=== PATIENT | female | born 1940 | race Caucasian/White ===

== ENCOUNTER 2018-06-29 22:48 | Inpatient (IN) ==
[2018-06-29] MEDS ORDERED: MORPHINE 4 MG/1 ML VIAL IV STA (23:23)
[2018-06-30 00:33] LABS: Basophils % 0.3 % (0.0-0.8); Eosinophils # 0.1 10*3/uL (0.0-0.87); Eosinophils % 0.9 % (0.00-10.9); Hematocrit 44.8 VOL% (35.7-47.0); Immature Granulocytes % 0.5 %; Immature Granulocytes Absolute 0.06 #; Lymphocytes # 1.1 10*3/uL (1.4-4.0); Lymphocytes % 7.9 % (21.3-54.2); Mean Corpuscular HGB Conc 33.5 GM/DL (32-36); Mean Corpuscular Hemoglobin 31 PG (27-34); Mean Corpuscular Volume 92.9 FL (87-102); Mean Platelet Volume 12.6 FL (9.6-12.0); Monocytes # 1.1 10*3/uL (0.11-0.8); Monocytes % 8.1 % (1.7-12.7); Neutrophils % 82.3 % (38.7-73.9); Platelet Count 134 T/CUMM (130-400); Red Blood Count 4.82 MC/CUMM (3.8-5.5); Red Cell Distribution Width 12.9 % (9.3-17.3); White Blood Count 13.3 T/CUMM (4-12)
[2018-06-30 00:39] LABS: Albumin 3.5 G/DL (3.4-5.0); Bilirubin,Total 0.7 MG/DL (0.2-1.0); Calcium 8.7 MG/DL (8.5-10.1); Total Protein 7.3 G/DL (6.4-8.3)
[2018-06-30 00:41] LABS: Lactic Acid 1.3 MMOL/L (0.4-2.0)
[2018-06-30 01:00] LABS: Apearance,Urine CLOUDY (Clear); Bilirubin,Urine Negative (Negative); Blood, Urine Large mg/dL (Negative); Glucose,Urine (UA) Negative (Negative); Ketones,Urine Negative (Negative); Nitrite,Urine Negative (Negative); Protein,Urine 100 MG/DL; RBC,Urine 404 /HPF (0-4); Urine Color Yellow (Yellow); Urine Specific Gravity 1.008 (1.001-1.035); Urine Urobilinogen < 2.0 EU/DL (0.2-1.0); WBC,Urine 870 /HPF (0-6)
[2018-06-30] MEDS ORDERED: SODIUM CHLOR 0.45% KCL 20 MEQ 20 MEQ/1,000 ML BAG IV SCH (01:00)
[2018-06-30] MEDS ORDERED: MORPHINE 4 MG/1 ML VIAL IV STA (01:06)
[2018-06-30] MEDS ORDERED: cefTRIAXone 1,000 MG in SODIUM CHLORIDE 0.9% 100 ML IV STA (01:13)
[2018-06-30] MEDS ORDERED: ONDANSETRON 4 MG/2 ML VIAL IV PRN (02:36)
[2018-06-30] MEDS ORDERED: DEXTROSE 50% 25 GM/50 ML VIAL IV PRN (02:36)
[2018-06-30] MEDS ORDERED: ACETAMINOPHEN 325 MG TABLET PO PRN (02:36)
[2018-06-30] MEDS ORDERED: GLUCAGON 1 MG VIAL IM PRN (02:36)
[2018-06-30] MEDS ORDERED: HYDROmorphone 2 MG/1 ML VIAL IV PRN (02:55)
[2018-06-30] MEDS ORDERED: MEROPENEM 1,000 MG in SODIUM CHLORIDE 0.9% 100 ML IV SCH (03:00)
[2018-06-30] MEDS ORDERED: SODIUM CHLORIDE 0.9% 1,000 ML IV SCH (03:00)
[2018-06-30 06:12] LABS: Basophils % 0.3 % (0.0-0.8); Eosinophils % 0.3 % (0.00-10.9); Hematocrit 40.1 VOL% (35.7-47.0); Hemoglobin 13.6 GM/DL (12.0-16.0); Immature Granulocytes % 0.5 %; Immature Granulocytes Absolute 0.06 #; Lymphocytes # 1.1 10*3/uL (1.4-4.0); Lymphocytes % 8.9 % (21.3-54.2); Mean Corpuscular HGB Conc 33.9 GM/DL (32-36); Mean Corpuscular Hemoglobin 31 PG (27-34); Mean Corpuscular Volume 91.6 FL (87-102); Mean Platelet Volume 12.5 FL (9.6-12.0); Monocytes # 1.2 10*3/uL (0.11-0.8); Monocytes % 10.5 % (1.7-12.7); Neutrophils # 9.4 10*3/uL (1.4-7.4); Neutrophils % 79.5 % (38.7-73.9); Platelet Count 122 T/CUMM (130-400); Red Blood Count 4.38 MC/CUMM (3.8-5.5); White Blood Count 11.9 T/CUMM (4-12)
[2018-06-30] MEDS: INSULIN REGULAR 100 UNIT/ML SUBCUT SCH ×4 (08:57→21:28)
[2018-06-30] MEDS ORDERED: MAGNESIUM SULF RIDER 2 GM in PREMIX 1 EACH IV PRN (10:26)
[2018-06-30] MEDS ORDERED: MAGNESIUM SULF RIDER 4 GM in PREMIX 1 EACH IV PRN (10:26)
[2018-06-30] MEDS: cefTRIAXone 1,000 MG in SYRINGE 1 EACH IV SCH (15:01)
[2018-06-30] MEDS: SODIUM CHLOR 0.45% KCL 20 MEQ 20 MEQ/1,000 ML BAG IV SCH (15:17)
[2018-06-30] MEDS ORDERED: FUROSEMIDE 40 MG TABLET PO SCH (16:00)
[2018-06-30] MEDS: DULoxetine 30 MG CAPSULE PO SCH (20:21)
[2018-06-30] MEDS: PREGABALIN 100 MG CAPSULE PO SCH (20:21)
[2018-06-30] MEDS: ATORVASTATIN 40 MG TABLET PO SCH (20:21)
[2018-06-30] MEDS: CARVEDILOL 12.5 MG TABLET PO SCH (20:22)
[2018-07-01 05:03] LABS: Basophils % 0.5 % (0.0-0.8); Eosinophils # 0.2 10*3/uL (0.0-0.87); Eosinophils % 2.2 % (0.00-10.9); Hematocrit 37.9 VOL% (35.7-47.0); Hemoglobin 12.4 GM/DL (12.0-16.0); Immature Granulocytes % 0.5 %; Immature Granulocytes Absolute 0.04 #; Lymphocytes # 1.7 10*3/uL (1.4-4.0); Lymphocytes % 22.2 % (21.3-54.2); Mean Corpuscular HGB Conc 32.7 GM/DL (32-36); Mean Corpuscular Hemoglobin 31 PG (27-34); Mean Corpuscular Volume 93.3 FL (87-102); Monocytes # 0.8 10*3/uL (0.11-0.8); Neutrophils # 4.9 10*3/uL (1.4-7.4); Neutrophils % 64.6 % (38.7-73.9); Platelet Count 115 T/CUMM (130-400); Red Blood Count 4.06 MC/CUMM (3.8-5.5); White Blood Count 7.6 T/CUMM (4-12)
[2018-07-01 05:27] LABS: Calcium 8.3 MG/DL (8.5-10.1); Potassium 3.3 MMOL/L (3.5-5.1)
[2018-07-01] MEDS: SODIUM CHLOR 0.45% KCL 20 MEQ 20 MEQ/1,000 ML BAG IV SCH (05:51)
[2018-07-01] MEDS: LEVOTHYROXINE 88 MCG TABLET PO SCH (06:50)
[2018-07-01] MEDS: CARVEDILOL 12.5 MG TABLET PO SCH ×2 (09:31→21:56)
[2018-07-01] MEDS: PREGABALIN 100 MG CAPSULE PO SCH ×2 (09:31→21:56)
[2018-07-01] MEDS: amLODIPine 5 MG TABLET PO SCH (09:31)
[2018-07-01] MEDS: LOSARTAN 50 MG TABLET PO SCH (09:31)
[2018-07-01] MEDS: PANTOPRAZOLE 40 MG TABLET PO SCH (09:31)
[2018-07-01] MEDS: INSULIN REGULAR 100 UNIT/ML SUBCUT SCH ×4 (10:16→21:56)
[2018-07-01] MEDS: cefTRIAXone 1,000 MG in SYRINGE 1 EACH IV SCH (15:59)
[2018-07-01] MEDS: POTASSIUM CHLORIDE RIDER 10 MEQ in PREMIX 1 EACH IV PRN ×3 (15:59→23:45)
[2018-07-01] MEDS: POTASSIUM CHLORIDE INJ 40 MEQ in SODIUM CHLORIDE 0.45% 1,000 ML IV SCH (16:01)
[2018-07-01] MEDS: DULoxetine 30 MG CAPSULE PO SCH (21:56)
[2018-07-01] MEDS: ATORVASTATIN 40 MG TABLET PO SCH (21:56)
[2018-07-02] MEDS: POTASSIUM CHLORIDE RIDER 10 MEQ in PREMIX 1 EACH IV PRN (02:01)
[2018-07-02 05:28] LABS: Basophils # 0.1 10*3/uL (0.0-0.2); Eosinophils # 0.3 10*3/uL (0.0-0.87); Eosinophils % 5.4 % (0.00-10.9); Hematocrit 38.1 VOL% (35.7-47.0); Hemoglobin 12.3 GM/DL (12.0-16.0); Immature Granulocytes % 0.6 %; Immature Granulocytes Absolute 0.03 #; Lymphocytes # 1.6 10*3/uL (1.4-4.0); Lymphocytes % 30.5 % (21.3-54.2); Mean Corpuscular HGB Conc 32.3 GM/DL (32-36); Mean Corpuscular Hemoglobin 30 PG (27-34); Mean Corpuscular Volume 94.3 FL (87-102); Mean Platelet Volume 12.7 FL (9.6-12.0); Monocytes # 0.6 10*3/uL (0.11-0.8); Monocytes % 11.1 % (1.7-12.7); Neutrophils # 2.6 10*3/uL (1.4-7.4); Neutrophils % 51.4 % (38.7-73.9); Platelet Count 127 T/CUMM (130-400); Red Blood Count 4.04 MC/CUMM (3.8-5.5); Red Cell Distribution Width 12.7 % (9.3-17.3); White Blood Count 5.1 T/CUMM (4-12)
[2018-07-02 05:56] LABS: Calcium 8.7 MG/DL (8.5-10.1); Potassium 4.4 MMOL/L (3.5-5.1)
[2018-07-02] MEDS: LEVOTHYROXINE 88 MCG TABLET PO SCH (06:17)
[2018-07-02] MEDS: LOSARTAN 50 MG TABLET PO SCH (08:24)
[2018-07-02] MEDS: PREGABALIN 100 MG CAPSULE PO SCH (08:24)
[2018-07-02] MEDS: PANTOPRAZOLE 40 MG TABLET PO SCH (08:24)
[2018-07-02] MEDS: amLODIPine 5 MG TABLET PO SCH (08:25)
[2018-07-02] MEDS: CARVEDILOL 12.5 MG TABLET PO SCH (08:26)
[2018-07-02] MEDS: INSULIN REGULAR 100 UNIT/ML SUBCUT SCH (08:26)
[2018-07-02] MEDS: POTASSIUM CHLORIDE INJ 40 MEQ in SODIUM CHLORIDE 0.45% 1,000 ML IV SCH (08:26)
[2018-07-02] MEDS ORDERED: ASPIRIN EC 81 MG TABLET PO SCH (09:00)
[2018-07-02 11:58] VITALS: BP 133/65
== END 2018-07-02 12:00 | disposition home or self-care (01) | DRG 690 ==
LOC: N.ED 22:48 → N.EDINP 06-30 02:28 → N.5E 06-30 02:42
PROVIDERS: ADMIT Internal Medicine; ATTEND Internal Medicine

== ENCOUNTER 2020-05-31 20:12 | Inpatient (IN) ==
[2020-05-31] MEDS ORDERED: DEXAMETHASONE 4 MG/1 ML VIAL IV STA (20:50)
[2020-05-31] MEDS ORDERED: SODIUM CHLORIDE 0.9% 1,000 ML IV STA (20:50)
[2020-05-31 20:51] LABS: Basophils % 0.6 % (0.0-0.8); Eosinophils # 0.1 10*3/uL (0.0-0.87); Eosinophils % 1.3 % (0.00-10.9); Hematocrit 39.1 VOL% (35.7-47.0); Hemoglobin 13.1 GM/DL (12.0-16.0); Immature Granulocytes % 0.6 %; Immature Granulocytes Absolute 0.03 #; Lymphocytes # 0.9 10*3/uL (1.4-4.0); Lymphocytes % 18.2 % (21.3-54.2); Mean Corpuscular HGB Conc 33.5 GM/DL (32-36); Mean Corpuscular Volume 89.7 FL (87-102); Monocytes % 12.9 % (1.7-12.7); Neutrophils % 66.4 % (38.7-73.9); Platelet Count 123 T/CUMM (130-400); Red Blood Count 4.36 MC/CUMM (3.8-5.5); Red Cell Distribution Width 14.9 % (9.3-17.3); White Blood Count 4.7 T/CUMM (4-12)
[2020-05-31 21:06] LABS: Alanine Aminotransferase 22 U/L (13-56); Albumin 3.1 G/DL (3.4-5.0); Alkaline Phosphatase 102 U/L (45-117); Aspartate Amino Transferase 28 U/L (0-37); Blood Urea Nitrogen 27 MG/DL (7-18); Calcium 8.2 MG/DL (8.5-10.1); Estimated Glom Filtration Rate 28 ML/MIN; Glucose 188 MG/DL (74-106); INR 1.1; Osmolality,Calculated 290.3 MOS/KG (273-304); PT Patient Result 11.9 SECS (9.8-11.9); Partial Thromboplastin Time 34.5 SECS (23.9-33.8); Total Protein 6.9 G/DL (6.4-8.3); Troponin I < 0.015 NG/ML (0.00-0.045)
[2020-05-31 21:08] LABS: Ferritin 147.6 ng/ml (8-252)
[2020-05-31 21:20] LABS: Bacteria,Urine Many /HPF (Few); Bilirubin,Urine Negative (Negative); Blood, Urine Moderate mg/dL (Negative); Glucose,Urine (UA) Negative (Negative); Ketones,Urine Negative (Negative); Nitrite,Urine Positive (Negative); Protein,Urine 30 MG/DL; RBC,Urine 78 /HPF (0-4); Urine Appearance Slightly Hazy (Clear); Urine Color Amber (Yellow); Urine Specific Gravity 1.008 (1.001-1.035); WBC,Urine 385 /HPF (0-6)
[2020-05-31] MEDS: ALBUTEROL INHALER 18 GM INH SCH (23:45)
[2020-06-01] MEDS ORDERED: CETIRIZINE 10 MG TABLET PO STA (01:20)
[2020-06-01] MEDS ORDERED: ONDANSETRON 4 MG/2 ML VIAL IV PRN (01:30)
[2020-06-01] MEDS ORDERED: DOCUSATE SODIUM 100 MG CAPSULE PO PRN (01:30)
[2020-06-01] MEDS ORDERED: cefTRIAXone 1,000 MG in SODIUM CHLORIDE 0.9% 100 ML IV SCH (01:30)
[2020-06-01] MEDS ORDERED: DEXTROSE 50% 25 GM/50 ML VIAL IV PRN (01:30)
[2020-06-01] MEDS ORDERED: GLUCAGON 1 MG VIAL IM PRN (01:30)
[2020-06-01] MEDS ORDERED: MAGNESIUM SULF RIDER 4 GM in PREMIX 1 EACH IV PRN (01:46)
[2020-06-01] MEDS ORDERED: MAGNESIUM SULF RIDER 2 GM in PREMIX 1 EACH IV PRN (01:46)
[2020-06-01] MEDS ORDERED: POTASSIUM CHLORIDE 20 MEQ TABLET PO PRN (01:46)
[2020-06-01] MEDS: cefTRIAXone 2,000 MG in SYRINGE 1 EACH IV SCH (02:05)
[2020-06-01] MEDS: AZITHROMYCIN INJ 500 MG in SODIUM CHLORIDE 0.9% 250 ML IV SCH (02:10)
[2020-06-01 04:48] LABS: Basophils % 0.5 % (0.0-0.8); Hematocrit 36.6 VOL% (35.7-47.0); Hemoglobin 12.3 GM/DL (12.0-16.0); Immature Granulocytes % 1.9 %; Immature Granulocytes Absolute 0.07 #; Lymphocytes # 0.5 10*3/uL (1.4-4.0); Lymphocytes % 12.5 % (21.3-54.2); Mean Corpuscular HGB Conc 33.6 GM/DL (32-36); Mean Corpuscular Volume 90.6 FL (87-102); Mean Platelet Volume 12.3 FL (9.6-12.0); Monocytes % 2.7 % (1.7-12.7); Neutrophils % 82.4 % (38.7-73.9); Platelet Count 132 T/CUMM (130-400); Red Blood Count 4.04 MC/CUMM (3.8-5.5); Red Cell Distribution Width 14.9 % (9.3-17.3); White Blood Count 3.8 T/CUMM (4-12)
[2020-06-01 05:05] LABS: Calcium 8.1 MG/DL (8.5-10.1); Osmolality,Calculated 296.7 MOS/KG (273-304)
[2020-06-01] MEDS: ALBUTEROL INHALER 18 GM INH SCH ×3 (07:35→21:15)
[2020-06-01] MEDS: INSULIN LISPRO 100 UNIT/ML SUBCUT SCH ×4 (08:08→21:15)
[2020-06-01] MEDS: DEXAMETHASONE 10 MG/1 ML VIAL IV SCH (10:10)
[2020-06-01] MEDS: ZINC SULFATE 220 MG CAPSULE PO SCH (10:13)
[2020-06-01] MEDS: CETIRIZINE 10 MG TABLET PO SCH (10:13)
[2020-06-01] MEDS: ASCORBIC ACID 500 MG TABLET PO SCH (10:13)
[2020-06-01] MEDS: FAMOTIDINE 20 MG TABLET PO SCH ×2 (10:13→21:15)
[2020-06-01] MEDS: CLORAZEPATE 3.75 MG TABLET PO PRN (21:15)
[2020-06-02] MEDS: cefTRIAXone 2,000 MG in SYRINGE 1 EACH IV SCH (01:42)
[2020-06-02] MEDS: ALBUTEROL INHALER 18 GM INH SCH ×4 (01:46→19:58)
[2020-06-02] MEDS: AZITHROMYCIN INJ 500 MG in SODIUM CHLORIDE 0.9% 250 ML IV SCH (01:50)
[2020-06-02] MEDS: ACETAMINOPHEN 325 MG TABLET PO PRN ×2 (03:58→16:45)
[2020-06-02 06:32] LABS: Basophils % 0.2 % (0.0-0.8); Hematocrit 36.3 VOL% (35.7-47.0); Hemoglobin 12.1 GM/DL (12.0-16.0); Immature Granulocytes % 0.6 %; Immature Granulocytes Absolute 0.08 #; Lymphocytes # 0.9 10*3/uL (1.4-4.0); Lymphocytes % 7.4 % (21.3-54.2); Mean Corpuscular HGB Conc 33.3 GM/DL (32-36); Mean Platelet Volume 12.6 FL (9.6-12.0); Monocytes % 5.4 % (1.7-12.7); Neutrophils % 86.4 % (38.7-73.9); Platelet Count 151 T/CUMM (130-400); Red Blood Count 3.99 MC/CUMM (3.8-5.5); Red Cell Distribution Width 15.3 % (9.3-17.3); White Blood Count 12.4 T/CUMM (4-12)
[2020-06-02 06:40] LABS: Osmolality,Calculated 293.8 MOS/KG (273-304)
[2020-06-02] MEDS ORDERED: BUDESONIDE/FORMOTEROL 160-4.5 INHALER 6 GM INH PRN (08:37)
[2020-06-02] MEDS ORDERED: NITROGLYCERIN SL 0.4 MG TABLET SL PRN (08:37)
[2020-06-02] MEDS ORDERED: ALBUTEROL SULFATE INH PRN (08:37)
[2020-06-02] MEDS: INSULIN LISPRO 100 UNIT/ML SUBCUT SCH ×4 (09:15→21:34)
[2020-06-02] MEDS: MULTIVITAMIN (CENTRUM) TABLET PO SCH (09:16)
[2020-06-02] MEDS: ASPIRIN EC 81 MG TABLET PO SCH (09:16)
[2020-06-02] MEDS: PREGABALIN 100 MG CAPSULE PO SCH ×3 (09:17→21:10)
[2020-06-02] MEDS: DEXAMETHASONE 10 MG/1 ML VIAL IV SCH (09:17)
[2020-06-02] MEDS: POTASSIUM CHLORIDE 10 MEQ TABLET PO SCH ×2 (09:17→21:10)
[2020-06-02] MEDS: carvediloL 25 MG TABLET PO SCH (09:17)
[2020-06-02] MEDS: FUROSEMIDE 40 MG TABLET PO SCH ×2 (09:17→14:59)
[2020-06-02] MEDS: LOSARTAN 50 MG TABLET PO SCH ×2 (09:17→21:10)
[2020-06-02] MEDS: APIXABAN 2.5 MG TABLET PO SCH ×2 (09:17→21:10)
[2020-06-02] MEDS: CETIRIZINE 10 MG TABLET PO SCH (09:18)
[2020-06-02] MEDS: CLORAZEPATE 3.75 MG TABLET PO PRN ×2 (09:18→14:56)
[2020-06-02] MEDS: PANTOPRAZOLE 40 MG TABLET PO SCH ×2 (09:18→21:11)
[2020-06-02] MEDS: FAMOTIDINE 20 MG TABLET PO SCH ×2 (09:18→21:11)
[2020-06-02] MEDS: CYANOCOBALAMIN 500 MCG TABLET PO SCH (09:18)
[2020-06-02] MEDS: ASCORBIC ACID 500 MG TABLET PO SCH (09:18)
[2020-06-02] MEDS: CHOLECALCIFEROL 1,000 UNIT TABLET PO SCH (09:18)
[2020-06-02] MEDS: amLODIPine 2.5 MG TABLET PO SCH (09:18)
[2020-06-02] MEDS: Fluticasone Furoate-Vilanterol [Breo Ellipta] 200-25 mcg/dose Bl INH SCH (11:05)
[2020-06-02] MEDS: OMEGA 3 ACID ETHYL ESTERS 1 GM CAPSULE PO SCH (11:12)
[2020-06-02] MEDS: MAGNESIUM OXIDE 400 MG TABLET PO SCH (11:12)
[2020-06-02] MEDS: cycloSPORINE OPH EMUL 1 VIAL BOTH EYES SCH ×2 (11:22→21:36)
[2020-06-02 13:07] LABS: Thyroid Stimulating Hormone 0.33 uIU/ml (0.358-3.74)
[2020-06-02] MEDS: DULoxetine 30 MG CAPSULE PO SCH (21:10)
[2020-06-02] MEDS: guaiFENesin/DM ER 600-30 MG TABLET PO SCH (21:10)
[2020-06-02] MEDS: ATORVASTATIN 40 MG TABLET PO SCH (21:10)
[2020-06-02] MEDS: MONTELUKAST 10 MG TABLET PO SCH (21:11)
[2020-06-03] MEDS: ALBUTEROL INHALER 18 GM INH SCH ×4 (00:59→18:53)
[2020-06-03] MEDS: cefTRIAXone 2,000 MG in SYRINGE 1 EACH IV SCH (00:59)
[2020-06-03] MEDS: AZITHROMYCIN INJ 500 MG in SODIUM CHLORIDE 0.9% 250 ML IV SCH (01:00)
[2020-06-03] MEDS: LEVOTHYROXINE 88 MCG TABLET PO SCH (06:32)
[2020-06-03] MEDS: INSULIN LISPRO 100 UNIT/ML SUBCUT SCH ×4 (08:16→21:21)
[2020-06-03] MEDS: PANTOPRAZOLE 40 MG TABLET PO SCH ×2 (09:09→21:21)
[2020-06-03] MEDS: amLODIPine 2.5 MG TABLET PO SCH (09:09)
[2020-06-03] MEDS: LOSARTAN 50 MG TABLET PO SCH ×2 (09:09→21:20)
[2020-06-03] MEDS: ZINC SULFATE 220 MG CAPSULE PO SCH (09:09)
[2020-06-03] MEDS: OMEGA 3 ACID ETHYL ESTERS 1 GM CAPSULE PO SCH (09:09)
[2020-06-03] MEDS: CHOLECALCIFEROL 1,000 UNIT TABLET PO SCH (09:09)
[2020-06-03] MEDS: FUROSEMIDE 40 MG TABLET PO SCH ×2 (09:09→16:31)
[2020-06-03] MEDS: DEXAMETHASONE 10 MG/1 ML VIAL IV SCH (09:09)
[2020-06-03] MEDS: FAMOTIDINE 20 MG TABLET PO SCH ×2 (09:09→21:20)
[2020-06-03] MEDS: MAGNESIUM OXIDE 400 MG TABLET PO SCH (09:09)
[2020-06-03] MEDS: ASCORBIC ACID 500 MG TABLET PO SCH (09:09)
[2020-06-03] MEDS: CYANOCOBALAMIN 500 MCG TABLET PO SCH (09:09)
[2020-06-03] MEDS: carvediloL 25 MG TABLET PO SCH (09:09)
[2020-06-03] MEDS: guaiFENesin/DM ER 600-30 MG TABLET PO SCH ×2 (09:09→21:21)
[2020-06-03] MEDS: CETIRIZINE 10 MG TABLET PO SCH (09:09)
[2020-06-03] MEDS: APIXABAN 2.5 MG TABLET PO SCH ×2 (09:09→21:20)
[2020-06-03] MEDS: ASPIRIN EC 81 MG TABLET PO SCH (09:09)
[2020-06-03] MEDS: PREGABALIN 100 MG CAPSULE PO SCH ×3 (09:09→21:20)
[2020-06-03] MEDS: POTASSIUM CHLORIDE 10 MEQ TABLET PO SCH ×2 (09:09→21:20)
[2020-06-03] MEDS: MULTIVITAMIN (CENTRUM) TABLET PO SCH (09:09)
[2020-06-03] MEDS: Fluticasone Furoate-Vilanterol [Breo Ellipta] 200-25 mcg/dose Bl INH SCH (09:36)
[2020-06-03] MEDS: cycloSPORINE OPH EMUL 1 VIAL BOTH EYES SCH ×2 (09:37→22:30)
[2020-06-03] MEDS: ACETAMINOPHEN 325 MG TABLET PO PRN (21:20)
[2020-06-03] MEDS: CLORAZEPATE 3.75 MG TABLET PO PRN (21:20)
[2020-06-03] MEDS: DULoxetine 30 MG CAPSULE PO SCH (21:20)
[2020-06-03] MEDS: ATORVASTATIN 40 MG TABLET PO SCH (21:21)
[2020-06-03] MEDS: MONTELUKAST 10 MG TABLET PO SCH (21:21)
[2020-06-04] MEDS: ALBUTEROL INHALER 18 GM INH SCH ×3 (01:17→09:00)
[2020-06-04] MEDS: AZITHROMYCIN INJ 500 MG in SODIUM CHLORIDE 0.9% 250 ML IV SCH (01:18)
[2020-06-04] MEDS: cefTRIAXone 2,000 MG in SYRINGE 1 EACH IV SCH (01:18)
[2020-06-04] MEDS: LEVOTHYROXINE 88 MCG TABLET PO SCH (06:00)
[2020-06-04] MEDS: PANTOPRAZOLE 40 MG TABLET PO SCH (08:40)
[2020-06-04] MEDS: amLODIPine 2.5 MG TABLET PO SCH (08:40)
[2020-06-04] MEDS: LOSARTAN 50 MG TABLET PO SCH (08:40)
[2020-06-04] MEDS: FUROSEMIDE 40 MG TABLET PO SCH (08:40)
[2020-06-04] MEDS: OMEGA 3 ACID ETHYL ESTERS 1 GM CAPSULE PO SCH (08:40)
[2020-06-04] MEDS: INSULIN LISPRO 100 UNIT/ML SUBCUT SCH ×2 (08:40→11:44)
[2020-06-04] MEDS: ASPIRIN EC 81 MG TABLET PO SCH (08:40)
[2020-06-04] MEDS: ASCORBIC ACID 500 MG TABLET PO SCH (08:40)
[2020-06-04] MEDS: APIXABAN 2.5 MG TABLET PO SCH (08:40)
[2020-06-04] MEDS: PREGABALIN 100 MG CAPSULE PO SCH (08:40)
[2020-06-04] MEDS: CYANOCOBALAMIN 500 MCG TABLET PO SCH (08:40)
[2020-06-04] MEDS: guaiFENesin/DM ER 600-30 MG TABLET PO SCH (08:40)
[2020-06-04] MEDS: POTASSIUM CHLORIDE 10 MEQ TABLET PO SCH (08:40)
[2020-06-04] MEDS: MULTIVITAMIN (CENTRUM) TABLET PO SCH (08:40)
[2020-06-04] MEDS: MAGNESIUM OXIDE 400 MG TABLET PO SCH (08:40)
[2020-06-04] MEDS: DEXAMETHASONE 10 MG/1 ML VIAL IV SCH (08:40)
[2020-06-04] MEDS: carvediloL 25 MG TABLET PO SCH (08:40)
[2020-06-04] MEDS: Fluticasone Furoate-Vilanterol [Breo Ellipta] 200-25 mcg/dose Bl INH SCH (08:58)
[2020-06-04] MEDS: CETIRIZINE 10 MG TABLET PO SCH (08:59)
[2020-06-04] MEDS: CHOLECALCIFEROL 1,000 UNIT TABLET PO SCH (08:59)
[2020-06-04] MEDS: FAMOTIDINE 20 MG TABLET PO SCH (08:59)
[2020-06-04 11:56] VITALS: BP 144/95
[2020-06-04] MEDS: cycloSPORINE OPH EMUL 1 VIAL BOTH EYES SCH (12:14)
== END 2020-06-04 15:00 | disposition home health service (06) | DRG 177 ==
LOC: EDUNIT# → EDBD → N.ED 20:12 → N.EDINP 06-01 01:16 → N.2E 06-01 13:50
PROVIDERS: ADMIT Family Medicine; ATTEND Family Medicine

== ENCOUNTER 2020-06-10 14:27 | Observation (INO) ==
[2020-06-10] MEDS ORDERED: SODIUM CHLORIDE 0.9% 1,000 ML IV STA (14:53)
[2020-06-10 15:27] LABS: Basophils % 0.1 % (0.0-0.8); Eosinophils # 0.2 10*3/uL (0.0-0.87); Eosinophils % 3.1 % (0.00-10.9); Hematocrit 34.6 VOL% (35.7-47.0); Hemoglobin 11.6 GM/DL (12.0-16.0); Immature Granulocytes % 4.9 %; Immature Granulocytes Absolute 0.34 #; Lymphocytes # 0.9 10*3/uL (1.4-4.0); Lymphocytes % 12.8 % (21.3-54.2); Mean Corpuscular HGB Conc 33.5 GM/DL (32-36); Mean Corpuscular Volume 89.6 FL (87-102); Mean Platelet Volume 11.9 FL (9.6-12.0); Monocytes % 12.1 % (1.7-12.7); Platelet Count 172 T/CUMM (130-400); Red Blood Count 3.86 MC/CUMM (3.8-5.5); Red Cell Distribution Width 14.7 % (9.3-17.3); White Blood Count 6.9 T/CUMM (4-12)
[2020-06-10 16:04] LABS: Albumin 2.3 G/DL (3.4-5.0); Bilirubin,Total 0.9 MG/DL (0.2-1.0); Calcium 7.6 MG/DL (8.5-10.1); Osmolality,Calculated 286.7 MOS/KG (273-304)
[2020-06-10 16:21] LABS: Bacteria,Urine Occasional /HPF (Few); Bilirubin,Urine Negative (Negative); Blood, Urine Large mg/dL (Negative); Glucose,Urine (UA) Negative (Negative); Hyaline Casts,Urine 1 /LPF (0-3); Ketones,Urine Negative (Negative); Mucus,Urine Occasional /LPF (Occasional); Nitrite,Urine Negative (Negative); Protein,Urine 30 MG/DL; RBC,Urine 15 /HPF (0-4); Squamous Epithelial Cell,Urine Occasional /HPF (0-10); Urine Appearance Slightly Hazy (Clear); Urine Color Yellow (Yellow); Urine Specific Gravity 1.004 (1.001-1.035); Urine Urobilinogen < 2.0 EU/DL (0.2-1.0); WBC,Urine 2 /HPF (0-6)
[2020-06-10] MEDS ORDERED: cefTRIAXone 1,000 MG in SODIUM CHLORIDE 0.9% 100 ML IV STA (16:27)
[2020-06-10] MEDS ORDERED: GLUCAGON 1 MG VIAL IM PRN ×2 (16:43→16:54)
[2020-06-10] MEDS ORDERED: DEXTROSE 50% 25 GM/50 ML VIAL IV PRN ×2 (16:43→16:54)
[2020-06-10] MEDS ORDERED: ACETAMINOPHEN 325 MG TABLET PO PRN (16:54)
[2020-06-10] MEDS ORDERED: ONDANSETRON 4 MG/2 ML VIAL IV PRN (16:54)
[2020-06-10] MEDS ORDERED: NITROGLYCERIN SL 0.4 MG TABLET SL PRN (17:00)
[2020-06-10] MEDS: SODIUM CHLORIDE 0.9% 1,000 ML IV SCH (18:30)
[2020-06-10] MEDS: ATORVASTATIN 40 MG TABLET PO SCH (20:38)
[2020-06-10] MEDS: MONTELUKAST 10 MG TABLET PO SCH (20:38)
[2020-06-10] MEDS: PREGABALIN 100 MG CAPSULE PO SCH (20:38)
[2020-06-10] MEDS: PANTOPRAZOLE 40 MG TABLET PO SCH (20:38)
[2020-06-10] MEDS: APIXABAN 2.5 MG TABLET PO SCH (20:38)
[2020-06-10] MEDS ORDERED: carvediloL 25 MG TABLET PO SCH (21:00)
[2020-06-10] MEDS ORDERED: LOSARTAN 50 MG TABLET PO SCH (21:00)
[2020-06-10] MEDS: INSULIN LISPRO 100 UNIT/ML SUBCUT SCH (21:36)
[2020-06-11 05:39] LABS: Basophils % 0.5 % (0.0-0.8); Eosinophils # 0.2 10*3/uL (0.0-0.87); Eosinophils % 5.5 % (0.00-10.9); Hematocrit 33.2 VOL% (35.7-47.0); Hemoglobin 11.1 GM/DL (12.0-16.0); Immature Granulocytes Absolute 0.33 #; Lymphocytes # 0.8 10*3/uL (1.4-4.0); Lymphocytes % 20.5 % (21.3-54.2); Mean Corpuscular HGB Conc 33.4 GM/DL (32-36); Mean Platelet Volume 12.3 FL (9.6-12.0); Monocytes % 13.9 % (1.7-12.7); Neutrophils % 50.6 % (38.7-73.9); Platelet Count 127 T/CUMM (130-400); Red Blood Count 3.65 MC/CUMM (3.8-5.5); Red Cell Distribution Width 14.8 % (9.3-17.3); White Blood Count 3.7 T/CUMM (4-12)
[2020-06-11 05:59] LABS: Calcium 7.4 MG/DL (8.5-10.1); Osmolality,Calculated 299.3 MOS/KG (273-304)
[2020-06-11 06:13] LABS: Eosinophils 6 % (0-10); Lymphocytes 17 % (20-55); Segmented Neutrophils 68 % (50-85); Total Cells Counted 100
[2020-06-11 06:15] LABS: Platelet Estimate Adequate
[2020-06-11] MEDS: INSULIN LISPRO 100 UNIT/ML SUBCUT SCH ×4 (08:45→20:41)
[2020-06-11] MEDS ORDERED: amLODIPine 2.5 MG TABLET PO SCH (09:00)
[2020-06-11] MEDS: CYANOCOBALAMIN 500 MCG TABLET PO SCH (09:11)
[2020-06-11] MEDS: PREGABALIN 100 MG CAPSULE PO SCH ×3 (09:11→20:41)
[2020-06-11] MEDS: MAGNESIUM OXIDE 400 MG TABLET PO SCH (09:11)
[2020-06-11] MEDS: DULoxetine 30 MG CAPSULE PO SCH (09:11)
[2020-06-11] MEDS: MULTIVITAMIN (CENTRUM) TABLET PO SCH (09:11)
[2020-06-11] MEDS: APIXABAN 2.5 MG TABLET PO SCH ×2 (09:11→20:40)
[2020-06-11] MEDS: NON-FORMULARY MEDICATION (Fluticasone Furoate-Vilanterol [Breo Ellipta] 200-25 mcg/dose Bl INH SCH (09:12)
[2020-06-11] MEDS: cefTRIAXone 1,000 MG in SYRINGE 1 EACH IV SCH (09:12)
[2020-06-11] MEDS: PANTOPRAZOLE 40 MG TABLET PO SCH ×2 (09:12→20:40)
[2020-06-11] MEDS: CHOLECALCIFEROL 1,000 UNIT TABLET PO SCH (09:12)
[2020-06-11] MEDS: LEVOTHYROXINE 88 MCG TABLET PO SCH (09:12)
[2020-06-11] MEDS: SODIUM CHLORIDE 0.9% 1,000 ML IV SCH (10:30)
[2020-06-11] MEDS: ATORVASTATIN 40 MG TABLET PO SCH (20:40)
[2020-06-11] MEDS: MONTELUKAST 10 MG TABLET PO SCH (20:40)
[2020-06-12 06:34] LABS: Basophils % 0.6 % (0.0-0.8); Eosinophils # 0.2 10*3/uL (0.0-0.87); Eosinophils % 5.7 % (0.00-10.9); Hemoglobin 10.2 GM/DL (12.0-16.0); Immature Granulocytes % 6.6 %; Immature Granulocytes Absolute 0.22 #; Lymphocytes # 0.9 10*3/uL (1.4-4.0); Lymphocytes % 26.7 % (21.3-54.2); Mean Corpuscular HGB Conc 32.9 GM/DL (32-36); Mean Corpuscular Volume 91.4 FL (87-102); Mean Platelet Volume 12.6 FL (9.6-12.0); Monocytes % 19.2 % (1.7-12.7); Neutrophils % 41.2 % (38.7-73.9); Platelet Count 120 T/CUMM (130-400); Red Blood Count 3.39 MC/CUMM (3.8-5.5); Red Cell Distribution Width 14.9 % (9.3-17.3); White Blood Count 3.3 T/CUMM (4-12)
[2020-06-12 06:53] LABS: Calcium 7.9 MG/DL (8.5-10.1); Osmolality,Calculated 288.8 MOS/KG (273-304)
[2020-06-12 07:00] LABS: Band Neutrophils 1 % (0-10); Eosinophils 10 % (0-10); Lymphocytes 26 % (20-55); Platelet Estimate Normal; Segmented Neutrophils 50 % (50-85); Total Cells Counted 100
[2020-06-12 07:01] LABS: Hypochromasia 1+; Ovalocytes Slight
[2020-06-12] MEDS: INSULIN LISPRO 100 UNIT/ML SUBCUT SCH (08:15)
[2020-06-12 08:22] VITALS: BP 109/68
[2020-06-12] MEDS: MAGNESIUM OXIDE 400 MG TABLET PO SCH (08:56)
[2020-06-12] MEDS: CYANOCOBALAMIN 500 MCG TABLET PO SCH (08:56)
[2020-06-12] MEDS: LEVOTHYROXINE 88 MCG TABLET PO SCH (08:56)
[2020-06-12] MEDS: MULTIVITAMIN (CENTRUM) TABLET PO SCH (08:56)
[2020-06-12] MEDS: PREGABALIN 100 MG CAPSULE PO SCH (08:57)
[2020-06-12] MEDS: PANTOPRAZOLE 40 MG TABLET PO SCH (08:57)
[2020-06-12] MEDS: SODIUM CHLORIDE 0.9% 1,000 ML IV SCH (08:57)
[2020-06-12] MEDS: APIXABAN 2.5 MG TABLET PO SCH (08:57)
[2020-06-12] MEDS: cefTRIAXone 1,000 MG in SYRINGE 1 EACH IV SCH (08:57)
[2020-06-12] MEDS: DULoxetine 30 MG CAPSULE PO SCH (08:57)
[2020-06-12] MEDS: NON-FORMULARY MEDICATION (Fluticasone Furoate-Vilanterol [Breo Ellipta] 200-25 mcg/dose Bl INH SCH (08:58)
[2020-06-12] MEDS: CHOLECALCIFEROL 1,000 UNIT TABLET PO SCH (08:58)
[2020-06-12] MEDS ORDERED: ZINC SULFATE 220 MG CAPSULE PO SCH (09:00)
== END 2020-06-12 11:00 | disposition home or self-care (01) ==
LOC: EDUNIT# → EDBD → N.EDINP 14:27 → N.ED 14:27 → N.2E 17:38
PROVIDERS: ADMIT Emergency Medicine; ATTEND Emergency Medicine